=== PATIENT | male | born 1960 | race American Indian/Alaskan Native ===

== ENCOUNTER 2022-05-24 15:36 | Emergency (ER) | payer OTHER ==
[2022-05-24] MEDS ORDERED: SODIUM CHLORIDE 0.9% 1000 ML 1,000 ML IV ONE (17:14)
--- NOTE | 2022-05-24 17:16 | Emergency Department Report ---
Blank Doc - Documentation Documentation: [id number] Patient arrives via EMS. We are currently waiting for a bed. Patient is here with complaint of hyperglycemia with elevated blood sugars above 500. Given this I have ordered work-up for DKA versus HHS and started patient on IV fluids.
[2022-05-24 21:26] LABS: Hematocrit 27.2 % (35.5-45.6); Mean Corpuscular HGB Conc 33 % (32-34); Mean Corpuscular Volume 89 fl (84-94); Platelet Count 356 K/mm3 (140-440); Red Blood Count 3.05 M/mm3 (3.65-5.03); Red Cell Distribution Width 16.2 % (13.2-15.2)
[2022-05-24 22:15] LABS: Albumin 3.8 g/dL (3.9-5); Calcium 9.2 mg/dL (8.4-10.2)
[2022-05-25 01:46] LABS: Chol/HDL Ratio 2.63 %
--- NOTE | 2022-05-25 08:56 | Emergency Department Report ---
ED General Adult HPI - General Chief complaint: Hyperglycemia Stated complaint: HYPERGLYCEMIA Time Seen by Provider: 05/25/22 08:54 Source: patient, EMS Mode of arrival: Stretcher Limitations: No Limitations - History of Present Illness Initial comments: Patient presents with elevated blood glucose and peripheral neuropathy that is been going on for several months. Patient states he came to the emergency department to evaluate his blood sugars. He is in no acute distress no chest pain no nausea no vomiting. Severity scale (0 -10): 0 - Related Data Previous Rx's Medication Instructions Recorded Last Taken Type Gabapentin 300 mg PO BID #24 cap 05/25/22 Unknown Rx Allergies Allergy/AdvReac Type Severity Reaction Status Date / Time No Known Allergies Allergy Unverified 05/24/22 15:54 ED Review of Systems ROS: Stated complaint: HYPERGLYCEMIA Other details as noted in HPI Constitutional: denies: chills, fever Eyes: denies: eye pain, eye discharge, vision change ENT: denies: ear pain, throat pain Respiratory: denies: cough, shortness of breath, wheezing Cardiovascular: denies: chest pain, palpitations Endocrine: no symptoms reported Gastrointestinal: denies: abdominal pain, nausea, diarrhea Genitourinary: denies: urgency, dysuria Musculoskeletal: denies: back pain, joint swelling, arthralgia Skin: denies: rash, lesions Neurological: as per HPI. denies: headache, weakness, paresthesias Psychiatric: denies: anxiety, depression Hematological/Lymphatic: denies: easy bleeding, easy bruising ED Past Medical Hx - Medications Home Medications: Home Medications Medication Instructions Recorded Confirmed Last Taken Type Gabapentin 300 mg PO BID #24 cap 05/25/22 Unknown Rx ED Physical Exam - General Limitations: No Limitations General appearance: alert, in no apparent distress - Head Head exam: Present: atraumatic, normocephalic - Eye Eye exam: Present: normal appearance - ENT ENT exam: Present: mucous membranes moist - Neck Neck exam: Present: normal inspection - Respiratory Respiratory exam: Present: normal lung sounds bilaterally. Absent: respiratory distress - Cardiovascular Cardiovascular Exam: Present: regular rate, normal rhythm. Absent: systolic murmur, diastolic murmur, rubs, gallop - GI/Abdominal GI/Abdominal exam: Present: soft, normal bowel sounds - Rectal Rectal exam: Present: deferred - Extremities Exam Extremities exam: Present: normal inspection - Back Exam Back exam: Present: normal inspection - Neurological Exam Neurological exam: Present: alert, oriented X3 - Psychiatric Psychiatric exam: Present: normal affect, normal mood - Skin Skin exam: Present: warm, dry, intact, normal color. Absent: rash ED Course Vital Signs 05/24/22 05/25/22 05/25/22 15:46 08:44 10:34 Temperature 97.9 F 98.4 F Pulse Rate 80 96 H 87 Respiratory 16 15 12 Rate Blood Pressure 156/83 Blood Pressure 187/100 156/83 184/96 [Left] O2 Sat by Pulse 99 100 100 Oximetry 05/25/22 12:00 Temperature Pulse Rate 84 Respiratory 17 Rate Blood Pressure Blood Pressure 182/94 [Left] O2 Sat by Pulse 100 Oximetry - Consultations Consultation #1: 05/25/22 13:[address] Wall about admitting patient he states that patient does not meet admission criteria his elevated troponin can be explained by his chronic kidney disease he is not having any chest pain or shortness of breath therefore patient can be discharged with gabapentin and follow-up with her primary care provider. ED Medical Decision Making - Lab Data Result diagrams: 05/24/22 21:05 05/24/22 21:05 Lab Results 05/24/22 05/24/22 05/24/22 Range/Units 21:05 21:05 21:05 WBC 9.0 (4.5-11.0) K/mm3 RBC 3.05 L (3.65-5.03) M/mm3 Hgb 9.0 L (11.8-15.2) gm/dl Hct 27.2 L (35.5-45.6) % MCV 89 (84-94) fl MCH 30 (28-32) pg MCHC 33 (32-34) % RDW 16.2 H (13.2-15.2) % Plt Count 356 (140-440) K/mm3 VBG pH 7.357 (7.320-7.420) Sodium 140 (137-145) mmol/L Potassium 4.5 (3.6-5.0) mmol/L Chloride 105.3 (98-107) mmol/L Carbon Dioxide 18 L (22-30) mmol/L Anion Gap 21 mmol/L BUN 50 H (9-20) mg/dL Creatinine 2.4 H (0.8-1.3) mg/dL Estimated GFR 28 ml/min BUN/Creatinine Ratio 21 % Glucose 361 H (75-100) mg/dL POC Glucose (70-105) mg/dL Calcium 9.2 (8.4-10.2) mg/dL Total Bilirubin 0.40 (0.1-1.2) mg/dL AST 16 (5-40) units/L ALT 13 (7-56) units/L Alkaline Phosphatase 179 H (35-129) units/L Troponin T 0.245 H* (0.00-0.029) ng/mL Total Protein 7.4 (6.3-8.2) g/dL Albumin 3.8 L (3.9-5) g/dL Albumin/Globulin Ratio 1.1 % Triglycerides 89 (2-149) mg/dL Cholesterol 242 H (50-199) mg/dL LDL Cholesterol Direct 141 H (50-130) mg/dL HDL Cholesterol 92 H (40-59) mg/dL Cholesterol/HDL Ratio 2.63 % 05/25/22 05/25/22 05/25/22 Range/Units 08:00 09:15 11:30 WBC (4.5-11.0) K/mm3 RBC (3.65-5.03) M/mm3 Hgb (11.8-15.2) gm/dl Hct (35.5-45.6) % MCV (84-94) fl MCH (28-32) pg MCHC (32-34) % RDW (13.2-15.2) % Plt Count (140-440) K/mm3 VBG pH (7.320-7.420) Sodium (137-145) mmol/L Potassium (3.6-5.0) mmol/L Chloride (98-107) mmol/L Carbon Dioxide (22-30) mmol/L Anion Gap mmol/L BUN (9-20) mg/dL Creatinine (0.8-1.3) mg/dL Estimated GFR ml/min BUN/Creatinine Ratio % Glucose (75-100) mg/dL POC Glucose 427 H 417 H 396 H (70-105) mg/dL Calcium (8.4-10.2) mg/dL Total Bilirubin (0.1-1.2) mg/dL AST (5-40) units/L ALT (7-56) units/L Alkaline Phosphatase (35-129) units/L Troponin T (0.00-0.029) ng/mL Total Protein (6.3-8.2) g/dL Albumin (3.9-5) g/dL Albumin/Globulin Ratio % Triglycerides (2-149) mg/dL Cholesterol (50-199) mg/dL LDL Cholesterol Direct (50-130) mg/dL HDL Cholesterol (40-59) mg/dL Cholesterol/HDL Ratio % - Medical Decision Making Chief medical diagnosis: Hyperglycemia Differential medical diagnosis diabetic neuropathy, electrolyte abnormality I will get blood work IV fluids and insulin and I will reevaluate the patient. Critical care attestation.: If time is entered above; I have spent that time in minutes in the direct care of this critically ill patient, excluding procedure time. ED Disposition Clinical Impression: Hyperglycemia, Neuropathy, Elevated troponin Chronic kidney disease Qualifiers: Chronic kidney disease stage: stage 3 (moderate) Chronic kidney disease stage 3 subtype: unspecified whether 3a or 3b Qualified Code(s): N18.30 - Chronic kidney disease, stage 3 unspecified Disposition: 01 HOME / SELF CARE / HOMELESS Is pt being admited?: No Does the pt Need Aspirin: No Condition: Stable Instructions: Hyperglycemia, [id number] Prescriptions: Gabapentin 300 mg PO BID #24 cap
[2022-05-25] MEDS ORDERED: SODIUM CHLORIDE 0.9% 1000 ML 1,000 ML ONE (09:18)
[2022-05-25] MEDS ORDERED: INSULIN REGULAR, HUMAN 100 UNITS/1 ML IV ONE (12:41)
[2022-05-25 14:07] VITALS: BP 151/87
== END 2022-05-25 14:49 | disposition home or self-care (01) ==
LOC: ED 15:36
DX: E11.65 Type 2 diabetes mellitus with hyperglycemia (principal); G62.9 Polyneuropathy, unspecified; R77.8 Other specified abnormalities of plasma proteins; I12.9 Hypertensive chronic kidney disease with stage 1 through stage 4 chronic kidney disease, or unspecified chronic kidney disease; N18.9 Chronic kidney disease, unspecified
CPT/HCPCS: 36415; 80053; 80061; 82805; 82962; 84484; 85027; 96361; 96374; 99284; J7030